=== PATIENT | female | born 1970 | race Caucasian/White ===

== ENCOUNTER 2018-09-21 17:07 | Emergency (ER) | payer MEDICARE, MEDICAID ==
[~2018-09-21] VITALS: Ht 167.6 cm; Wt 152.5 kg
[2018-09-21 17:10] VITALS: BP 122/87
[2018-09-21] MEDS ORDERED: SODIUM CHLORIDE FLUSH 10ML SYR IVF ONE (18:00)
[2018-09-21] MEDS ORDERED: ONDANSETRON 2MG/ML, 2ML IVPush ONE (18:00)
[2018-09-21] MEDS ORDERED: MORPHINE SULFATE 4 MG/ML, 1ML IVPush PRN (18:00)
[2018-09-21] MEDS ORDERED: ONDANSETRON 2MG/ML, 2ML ONE (18:08)
[2018-09-21] MEDS ORDERED: MORPHINE SULFATE 4 MG/ML, 1ML ONE (18:08)
[2018-09-21 18:12] LABS: BASOPHILS # (AUTO) 0.06 x10^3/uL (0-0.1); BASOPHILS % (AUTO) 1 % (0-1); EOSINOPHILS # (AUTO) 0.11 x10^3/uL (0-0.4); EOSINOPHILS % (AUTO) 1 % (1-7); LYMPHOCYTES % (AUTO) 36 % (22-44); MD NO; MEAN CORPUSCULAR VOLUME 80.5 fL (80-100); MEAN PLATELET VOLUME 7.5 fL (7.4-10.4); MONOCYTES # (AUTO) 0.65 x10^3/uL (0.2-0.8); MONOCYTES % (AUTO) 6 % (2-9); NEUTROPHILS # (AUTO) 5.72 x10^3/uL (1.8-6.8); NEUTROPHILS % (AUTO) 56 % (42-75); PLATELET COUNT 498 x10^3/uL (130-400); RED BLOOD COUNT 4.75 x10^6/uL (3.82-5.3); RED CELL DISTRIBUTION WIDTH 19.3 % (9.6-15.2)
[2018-09-21 18:24] LABS: ALANINE AMINOTRANSFERASE 31 U/L (12-78); ALBUMIN 3.2 g/dL (3.4-5.0); ANION GAP 6 mmol/L (5-15); CALCIUM 8.3 mg/dL (8.5-10.1); CHLORIDE 108 mmol/L (98-107)
[2018-09-21 18:29] LABS: ALKALINE PHOSPHATASE 112 U/L (45-117); BILIRUBIN,TOTAL 0.3 mg/dL (0.2-1.0); CREATININE 0.84 mg/dL (0.55-1.02); TOTAL PROTEIN 8.1 g/dL (6.4-8.2); TROPONIN I < 0.015 ng/mL (0.000-0.045)
[2018-09-21 19:55] LABS: MICROSCOPIC NOT IND
[2018-09-21 19:57] LABS: CULTURE INDICATED? NO
[2018-09-21] MEDS ORDERED: OMNIPAQUE 350 MG/ML, 100ML BOTTLE ONE (23:36)
== END 2018-09-21 20:50 | disposition home or self-care (01) ==
LOC: ED 18:11
DX: S83.411A Sprain of medial collateral ligament of right knee, initial encounter (principal); R10.84 Generalized abdominal pain; I10 Essential (primary) hypertension; J45.909 Unspecified asthma, uncomplicated; Z88.2 Allergy status to sulfonamides; X58.XXXA Exposure to other specified factors, initial encounter; Y93.89 Activity, other specified; Y92.89 Other specified places as the place of occurrence of the external cause; Y99.8 Other external cause status
CPT/HCPCS: 29505; 36415; 71045; 73564; 74177; 80053; 81003; 83690; 84484; 85025; 93005; 96374; 96375; 99284; J2270; J2405; Q9967

== ENCOUNTER 2019-09-22 09:51 | Outpatient (CLI) | payer MEDICARE ==
[2019-09-22] MEDS ORDERED: OXYC-307 PO (10:24)
[2019-09-22] MEDS ORDERED: PANT40TA3 PO (10:24)
[2019-09-22] MEDS ORDERED: LISI40TA PO (10:24)
[2019-09-22] MEDS ORDERED: FLUT100B INH (10:24)
[2019-09-22] MEDS ORDERED: QUET50TA PO (10:24)
[2019-09-22] MEDS ORDERED: TIZA4TAB2 PO (10:24)
[2019-09-22] MEDS ORDERED: PRAZ2CAP2 PO (10:40)
[2019-09-22] MEDS ORDERED: ALBU8.5H8 INH (10:40)
[2019-09-22] MEDS ORDERED: DICY20TA3 PO (10:40)
[2019-09-22 11:12] LABS: CALCIUM 9.1 mg/dL (8.5-10.1); CHLORIDE 106 mmol/L (98-107)
[2019-09-22 11:17] LABS: ALANINE AMINOTRANSFERASE 29 U/L (12-78); ALBUMIN 3.9 g/dL (3.4-5.0); ALKALINE PHOSPHATASE 126 U/L (45-117); ANION GAP 11 mmol/L (5-15); BILIRUBIN,TOTAL 0.8 mg/dL (0.2-1.0); CREATININE 0.87 mg/dL (0.55-1.02); TOTAL PROTEIN 9.2 g/dL (6.4-8.2)
== END 2019-09-22 23:59 | disposition home or self-care (01) ==
LOC: STAR 09:51
PROVIDERS: ATTEND Thoracic Surgery (Cardiothoracic Vascular Surgery)
DX: Z01.818 Encounter for other preprocedural examination (principal)
CPT/HCPCS: 36415; 80053; U0001-CS

== ENCOUNTER 2019-09-30 05:56 | Inpatient (IN) | payer MEDICARE ==
[~2019-09-30] VITALS: Ht 167.6 cm; Wt 132.4 kg
[~2019-09-30 05:56] MED LIST: ALBU8.5H8 INH; DICY20TA3 PO; FLUT100B INH; LISI40TA PO; OXYC-307 PO; PANT40TA3 PO; PRAZ2CAP2 PO; QUET50TA PO; TIZA4TAB2 PO
[2019-09-30] MEDS ORDERED: BUPIVACAINE/PF-EPI 0.5% 1:200K ONE (06:20)
[2019-09-30] MEDS ORDERED: LACTATED RINGERS 1,000 ML IV SCH (06:43)
[2019-09-30 06:53] VITALS: BP 144/83
[2019-09-30] MEDS ORDERED: CHLORHEXIDINE 15 ML UDC MM ONE (07:00)
[2019-09-30] MEDS ORDERED: MIDAZOLAM 1 MG/ML, 2ML ONE (07:38)
[2019-09-30] MEDS ORDERED: FENTANYL PF 250 MCG/5ML ONE ×2 (07:39→10:14)
[2019-09-30] MEDS ORDERED: INDOCYANINE GREEN 25 MG VIAL ONE (10:23)
[2019-09-30] MEDS ORDERED: NEOSTIGMINE 1 MG/ML, 10ML ONE (11:00)
[2019-09-30] MEDS ORDERED: DEXAMETHASONE 4 MG/ML, 1ML ONE (11:00)
[2019-09-30] MEDS ORDERED: CEFAZOLIN 1,000 MG ONE ×2 (11:00)
[2019-09-30] MEDS ORDERED: ONDANSETRON 2MG/ML, 2ML ONE (11:00)
[2019-09-30] MEDS ORDERED: PROPOFOL 10 MG/ML, 20ML ONE (11:00)
[2019-09-30] MEDS ORDERED: GLYCOPYRROLATE 0.2MG/1ML, 5ML ONE (11:00)
[2019-09-30] MEDS ORDERED: SUCCINYLCHOLINE 20 MG/ML, 10ML ONE (11:00)
[2019-09-30] MEDS ORDERED: ROCURONIUM 10MG/ML,5ML ONE (11:00)
[2019-09-30] MEDS ORDERED: HYDROmorphone 2 MG/ML, 1ML ONE (11:27)
[2019-09-30] MEDS ORDERED: hydrALAzine 20 MG/ML, 1ML IV PRN (11:30)
[2019-09-30] MEDS ORDERED: HALOPERIDOL 5 MG/ML IV PRN (11:30)
[2019-09-30] MEDS ORDERED: ALBUTEROL SULFATE 2.5 MG/3 ML NPPB PRN (11:30)
[2019-09-30] MEDS ORDERED: HYDROcodone/APAP 7.5-325MG/15ML UDC PO PRN (11:30)
[2019-09-30] MEDS ORDERED: LABETALOL 5MG/ML, 20ML IV PRN (11:30)
[2019-09-30] MEDS ORDERED: MEPERIDINE/PF 25MG/0.5ML IVPush PRN (11:30)
[2019-09-30] MEDS ORDERED: PROMETHAZINE 25 MG/ML, 1ML IVPush PRN (11:30)
[2019-09-30] MEDS ORDERED: DIPHENHYDRAMINE 50 MG/ML, 1ML IVPush PRN (11:30)
[2019-09-30] MEDS: FENTANYL PF 100 MCG/2ML IV PRN ×4 (11:31→12:10)
[2019-09-30] MEDS: HYDROmorphone 1 MG/ML, 1ML INJ IVPush PRN ×4 (11:32→12:06)
[2019-09-30] MEDS: LACTATED RINGERS 1,000 ML IV SCH (11:36)
[2019-09-30] MEDS ORDERED: FENTANYL PF 100 MCG/2ML ONE (11:45)
[2019-09-30] MEDS ORDERED: HYDROcodone/APAP 7.5-325MG/15ML UDC ONE (11:46)
[2019-09-30] MEDS ORDERED: MEPERIDINE/PF 25MG/ML,1ML ONE (11:46)
[2019-09-30] MEDS ORDERED: DIPHENHYDRAMINE 50 MG/ML, 1ML IV PRN (12:00)
[2019-09-30] MEDS ORDERED: PROMETHAZINE 25 MG/ML, 1ML IM PRN (12:00)
[2019-09-30] MEDS ORDERED: ENALAPRILAT 1.25 MG/ML, 2ML IV PRN (12:00)
[2019-09-30] MEDS ORDERED: PROMETHAZINE 12.5 MG SUPP PR PRN (12:00)
[2019-09-30] MEDS ORDERED: morphine SULFATE 10 MG/ML, 1ML IVPush PRN (12:00)
[2019-09-30] MEDS ORDERED: FLUTICASONE FUROATE INH SCH (12:00)
[2019-09-30] MEDS ORDERED: PHENOL THROAT SPRAY BOTTLE MM PRN (12:00)
[2019-09-30] MEDS ORDERED: hydrALAzine 20 MG/ML, 1ML IVPush PRN (12:00)
[2019-09-30 12:41] VITALS: BP 160/94
[2019-09-30] MEDS: LORazepam 2 MG/ML, 1ML IV PRN ×2 (13:49→22:44)
[2019-09-30] MEDS: HYDROcodone/APAP 7.5-325MG/15ML UDC PO PRN ×4 (16:17→23:41)
[2019-09-30 19:11] VITALS: BP 144/79
[2019-09-30] MEDS: ONDANSETRON 2MG/ML, 2ML IVPush PRN (20:13)
[2019-09-30] MEDS: FAMOTIDINE 20 MG/2 ML IVPush SCH (20:13)
[2019-09-30] MEDS: BUDESONIDE 0.5 MG/2 ML INHA NPPB SCH (20:45)
[2019-10-01 00:49] VITALS: BP 132/83
[2019-10-01] MEDS: LACTATED RINGERS 1,000 ML IV SCH ×4 (01:22→23:30)
[2019-10-01 03:32] VITALS: BP 105/68
[2019-10-01] MEDS: HYDROcodone/APAP 7.5-325MG/15ML UDC PO PRN ×5 (03:38→20:19)
[2019-10-01] MEDS: ONDANSETRON 2MG/ML, 2ML IVPush PRN ×3 (05:47→22:43)
[2019-10-01 05:53] LABS: BASOPHILS # (AUTO) 0.05 x10^3/uL (0-0.1); BASOPHILS % (AUTO) 1 % (0-1); EOSINOPHILS # (AUTO) 0.02 x10^3/uL (0-0.4); EOSINOPHILS % (AUTO) 0 % (1-7); LYMPHOCYTES # (AUTO) 3.35 x10^3/uL (1-3.4); LYMPHOCYTES % (AUTO) 30 % (22-44); MD NO; MEAN CORPUSCULAR HEMOGLOBIN 25.9 pg (27.0-34.8); MEAN CORPUSCULAR HGB CONC 32.3 g/dL (32.4-35.8); MEAN CORPUSCULAR VOLUME 80.1 fL (80-100); MEAN PLATELET VOLUME 8.7 fL (7.4-10.4); MONOCYTES # (AUTO) 0.72 x10^3/uL (0.2-0.8); MONOCYTES % (AUTO) 7 % (2-9); NEUTROPHILS # (AUTO) 6.92 x10^3/uL (1.8-6.8); NEUTROPHILS % (AUTO) 63 % (42-75); PLATELET COUNT 321 x10^3/uL (130-400); RED CELL DISTRIBUTION WIDTH 18.4 % (9.6-15.2)
[2019-10-01 06:05] LABS: ALBUMIN 2.9 g/dL (3.4-5.0); ANION GAP 10 mmol/L (5-15); CALCIUM 8.6 mg/dL (8.5-10.1); CHLORIDE 105 mmol/L (98-107)
[2019-10-01 06:06] LABS: CREATININE 0.77 mg/dL (0.55-1.02)
[2019-10-01 06:35] VITALS: BP 141/88
[2019-10-01] MEDS: ENOXAPARIN 40 MG/0.4 ML SQ SCH (08:06)
[2019-10-01] MEDS: LISINOPRIL 40 MG TABLET PO SCH (08:08)
[2019-10-01] MEDS: DICYCLOMINE 20 MG TABLET PO SCH ×3 (08:08→20:18)
[2019-10-01] MEDS: FAMOTIDINE 20 MG/2 ML IVPush SCH ×2 (08:09→20:18)
[2019-10-01] MEDS: BUDESONIDE 0.5 MG/2 ML INHA NPPB SCH ×2 (08:35→20:09)
[2019-10-01 13:59] VITALS: BP 119/74
[2019-10-01 20:33] VITALS: BP 137/69
[2019-10-01] MEDS ORDERED: PRAZOSIN 2 MG CAPSULE PO SCH (21:00)
[2019-10-01] MEDS: LORazepam 2 MG/ML, 1ML IV PRN (22:43)
[2019-10-02 00:42] VITALS: BP 94/51
[2019-10-02] MEDS: ONDANSETRON 2MG/ML, 2ML IVPush PRN (05:50)
[2019-10-02] MEDS: HYDROcodone/APAP 7.5-325MG/15ML UDC PO PRN ×2 (05:51→09:51)
[2019-10-02 07:36] VITALS: BP 99/61
[2019-10-02] MEDS: ENOXAPARIN 40 MG/0.4 ML SQ SCH (08:25)
[2019-10-02] MEDS: DICYCLOMINE 20 MG TABLET PO SCH (08:25)
[2019-10-02] MEDS: LISINOPRIL 40 MG TABLET PO SCH (08:26)
[2019-10-02] MEDS: FAMOTIDINE 20 MG/2 ML IVPush SCH (08:46)
[2019-10-02 08:49] VITALS: BP 110/73
[2019-10-02] MEDS ORDERED: HYDR15SO3 PO (09:56)
== END 2019-10-02 10:15 | disposition home or self-care (01) | DRG 327 ==
LOC: ORIP 05:56 → 4NE 12:33 → DCLOUNGE 10-02 10:03
PROVIDERS: ADMIT Thoracic Surgery (Cardiothoracic Vascular Surgery); ATTEND Thoracic Surgery (Cardiothoracic Vascular Surgery)
PROC: 0DB64ZZ Excision of Stomach, Percutaneous Endoscopic Approach (ICD-10-PCS; principal; 2011-10-01)
PROC: 0DN74ZZ Release Stomach, Pylorus, Percutaneous Endoscopic Approach (ICD-10-PCS; 2011-10-01)
DX: K95.89 Other complications of other bariatric procedure (principal); K31.6 Fistula of stomach and duodenum; Z68.42 Body mass index [BMI] 45.0-49.9, adult; K28.9 Gastrojejunal ulcer, unspecified as acute or chronic, without hemorrhage or perforation; Y84.8 Other medical procedures as the cause of abnormal reaction of the patient, or of later complication, without mention of misadventure at the time of the procedure; Y92.098 Other place in other non-institutional residence as the place of occurrence of the external cause; E66.01 Morbid (severe) obesity due to excess calories; I10 Essential (primary) hypertension; E11.9 Type 2 diabetes mellitus without complications; Z88.6 Allergy status to analgesic agent; Z88.2 Allergy status to sulfonamides; Z88.8 Allergy status to other drugs, medicaments and biological substances; Z83.3 Family history of diabetes mellitus; Z82.49 Family history of ischemic heart disease and other diseases of the circulatory system; K21.9 Gastro-esophageal reflux disease without esophagitis; J45.909 Unspecified asthma, uncomplicated; K44.9 Diaphragmatic hernia without obstruction or gangrene; Z86.718 Personal history of other venous thrombosis and embolism
CPT/HCPCS: 36415; 80048; 82040; 85025; 88307; 94640; G0378; J0690; J1100; J1170; J1650; J2175; J2250; J2405; J2704; J2710; J3010; J7626; J0330; J2060; J2270; J3490; J7120

== ENCOUNTER 2019-10-17 07:58 | Emergency (ER) | payer MEDICARE ==
[~2019-10-17] VITALS: Ht 167.6 cm; Wt 131.8 kg
[~2019-10-17 07:58] MED LIST changes: +HYDR15SO3 PO
[2019-10-17 08:40] VITALS: BP 140/81
--- NOTE | 2019-10-17 09:18 | NUR ---
TASK RN. PT STATES LT UPPER ABD PAIN X1 DAY WITH NAUSEA. PT STATES POST GASTRIC BIPASS REVISION X14 DAYS AGO. PT PLACED ON MONITORS, IV STARTED. REPORT GIVEN TO HATTIE MAGANA.
[2019-10-17] MEDS ORDERED: MORPHINE SULFATE 4 MG/ML, 1ML ONE ×3 (09:22→11:07)
[2019-10-17] MEDS ORDERED: ONDANSETRON 2MG/ML, 2ML ONE (09:22)
[2019-10-17] MEDS: MORPHINE SULFATE 4 MG/ML, 1ML IVPush PRN ×2 (09:30→10:06)
[2019-10-17] MEDS ORDERED: ONDANSETRON 2MG/ML, 2ML IVPush ONE (09:30)
[2019-10-17] MEDS ORDERED: SODIUM CHLORIDE FLUSH 10ML SYR IVF ONE (09:30)
--- NOTE | 2019-10-17 09:31 | NUR ---
pt medicated per order. pt in bed at this time consuming oral contrast for study. call light in reach and pt encouraged to call for any needs.
[2019-10-17 09:33] LABS: BASOPHILS # (AUTO) 0.08 x10^3/uL (0-0.1); BASOPHILS % (AUTO) 1 % (0-1); EOSINOPHILS # (AUTO) 0.13 x10^3/uL (0-0.4); EOSINOPHILS % (AUTO) 2 % (1-7); LYMPHOCYTES # (AUTO) 2.76 x10^3/uL (1-3.4); LYMPHOCYTES % (AUTO) 44 % (22-44); MD NO; MEAN CORPUSCULAR HGB CONC 32.5 g/dL (32.4-35.8); MEAN PLATELET VOLUME 8.4 fL (7.4-10.4); MONOCYTES # (AUTO) 0.45 x10^3/uL (0.2-0.8); MONOCYTES % (AUTO) 7 % (2-9); NEUTROPHILS # (AUTO) 2.89 x10^3/uL (1.8-6.8); NEUTROPHILS % (AUTO) 46 % (42-75); PLATELET COUNT 420 x10^3/uL (130-400); RED BLOOD COUNT 5.33 x10^6/uL (3.82-5.3); RED CELL DISTRIBUTION WIDTH 18.5 % (9.6-15.2)
[2019-10-17 09:41] LABS: ALANINE AMINOTRANSFERASE 31 U/L (12-78); ALBUMIN 3.7 g/dL (3.4-5.0); ANION GAP 9 mmol/L (5-15); CALCIUM 9.4 mg/dL (8.5-10.1); CHLORIDE 104 mmol/L (98-107); CREATININE 0.99 mg/dL (0.55-1.02)
[2019-10-17 09:43] LABS: ALKALINE PHOSPHATASE 120 U/L (45-117); BILIRUBIN,TOTAL 0.7 mg/dL (0.2-1.0); TOTAL PROTEIN 9.1 g/dL (6.4-8.2)
--- NOTE | 2019-10-17 10:42 | NUR ---
PT IN CT
[2019-10-17] MEDS ORDERED: OMNIPAQUE 350 MG/ML, 100ML BOTTLE ONE (10:50)
[2019-10-17] MEDS ORDERED: morphine SULFATE 10 MG/ML, 1ML IVPush ONE (11:30)
[2019-10-17 11:44] LABS: MICROSCOPIC INDICATED
== END 2019-10-17 12:08 | disposition home or self-care (01) ==
LOC: ED 11:16
DX: R10.12 Left upper quadrant pain (principal); R10.32 Left lower quadrant pain; R11.2 Nausea with vomiting, unspecified; G89.29 Other chronic pain; R00.0 Tachycardia, unspecified; Z90.3 Acquired absence of stomach [part of]
CPT/HCPCS: 36415; 74177; 80053; 81001; 83690; 85025; 87086; 96374; 96375; 96376; 99285; J2270; J2405; Q9967

== ENCOUNTER 2019-10-19 15:36 | Emergency (ER) | payer MEDICARE ==
[~2019-10-19] VITALS: Ht 167.6 cm; Wt 132.8 kg
--- NOTE | 2019-10-19 15:56 | NUR ---
LOPPER: PT TO ROOM AT THIS TIME VIA WHEELCHAIR. ANA
[2019-10-19] MEDS ORDERED: MORPHINE SULFATE 4 MG/ML, 1ML ONE (17:20)
[2019-10-19] MEDS ORDERED: ONDANSETRON 2MG/ML, 2ML ONE (17:20)
[2019-10-19] MEDS ORDERED: MORPHINE SULFATE 4 MG/ML, 1ML IVPush PRN (17:30)
[2019-10-19] MEDS ORDERED: ONDANSETRON 2MG/ML, 2ML IVPush ONE (17:30)
--- NOTE | 2019-10-19 17:32 | NUR ---
PT RESTING IN [facility]. VSS. MEDICATED PER MAR
[2019-10-19 17:49] LABS: BASOPHILS # (AUTO) 0.05 x10^3/uL (0-0.1); BASOPHILS % (AUTO) 1 % (0-1); EOSINOPHILS # (AUTO) 0.25 x10^3/uL (0-0.4); EOSINOPHILS % (AUTO) 3 % (1-7); LYMPHOCYTES # (AUTO) 2.87 x10^3/uL (1-3.4); LYMPHOCYTES % (AUTO) 38 % (22-44); MD NO; MEAN CORPUSCULAR HEMOGLOBIN 26.2 pg (27.0-34.8); MEAN CORPUSCULAR HGB CONC 32.3 g/dL (32.4-35.8); MEAN PLATELET VOLUME 8.4 fL (7.4-10.4); MONOCYTES # (AUTO) 0.54 x10^3/uL (0.2-0.8); MONOCYTES % (AUTO) 7 % (2-9); NEUTROPHILS % (AUTO) 51 % (42-75); PLATELET COUNT 387 x10^3/uL (130-400); RED CELL DISTRIBUTION WIDTH 18.7 % (9.6-15.2)
[2019-10-19 17:52] LABS: ALANINE AMINOTRANSFERASE 32 U/L (12-78); ALBUMIN 3.4 g/dL (3.4-5.0); ANION GAP 5 mmol/L (5-15); CALCIUM 8.9 mg/dL (8.5-10.1); CHLORIDE 107 mmol/L (98-107); CREATININE 0.97 mg/dL (0.55-1.02)
[2019-10-19 17:54] LABS: ALKALINE PHOSPHATASE 119 U/L (45-117); BILIRUBIN,TOTAL 0.4 mg/dL (0.2-1.0); TOTAL PROTEIN 8.3 g/dL (6.4-8.2)
[2019-10-19] MEDS ORDERED: SODIUM CHLORIDE FLUSH 10ML SYR IVF ONE (18:00)
[2019-10-19 18:01] LABS: MICROSCOPIC INDICATED
[2019-10-19 18:14] VITALS: BP 146/78
== END 2019-10-19 18:39 | disposition home or self-care (01) ==
LOC: ED 18:15
DX: R10.11 Right upper quadrant pain (principal); R10.12 Left upper quadrant pain; R11.0 Nausea
CPT/HCPCS: 36415; 80053; 81001; 83690; 85025; 87086; 96374; 96375; 99284; J2270; J2405